=== PATIENT | female | born 1970 | race Caucasian/White ===

== ENCOUNTER 2017-06-01 05:31 | Inpatient (IN) ==
[2017-05-29 16:42] LABS: MANUAL DIFF NEEDED? NO; URINE SOURCE VOIDED
[2017-05-29 16:59] LABS: BASO% 0.8 % (0.0-0.8); EOS# 0.79 X1000 (0.0-0.7); EOS% 7.5 % (0.0-10.0); HEMATOCRIT 42.6 % (37.0-47.0); HEMOGLOBIN 14.7 g/dL (12.0-16.0); IMM GRAN# 0.02 X1000 (0.0-0.04); IMM GRAN% 0.2 % (0.0-0.5); LYMPH# 2.72 X1000 (1.2-3.4); LYMPH% 25.7 % (20.5-51.1); MCH 32.3 PG (27-31); MCHC 34.5 g/dL (33-37); MCV 93.6 FL (81-99); MONO# 0.87 X1000 (0.11-0.59); MONO% 8.2 % (1.7-9.3); MPV 10.1 FL (7.4-10.4); NEUT% 57.6 % (42.2-75.2); PLT 217 X1000 (130-400); RBC 4.55 XMIL (4.2-5.4)
[2017-05-29 17:20] LABS: BILIRUBIN URINE NEGATIVE (NEGATIVE); BLOOD URINE NEGATIVE (NEGATIVE); CLARITY SL. CLOUDY (CLEAR); COLOR YELLOW; GLUCOSE URINE NEGATIVE (NEGATIVE); LEUKOCYTES URINE TRACE (NEGATIVE); NITRITE URINE NEGATIVE (NEGATIVE); PROTEIN URINE NEGATIVE (NEGATIVE); SP GRAVITY URINE 1.015; URINE MICROSCOPIC NEEDED? YES; UROBILINOGEN URINE NORMAL
[2017-05-29 17:36] LABS: URINE CAST NONE SEEN /LPF; URINE CRYSTAL NONE SEEN /HPF; URINE EPITHELIAL CELLS <10 /HPF (<10); URINE WBC <10 /HPF (<10)
[2017-06-01] MEDS ORDERED: LR 1,000 ML ONE ×3 (06:19→09:20)
[2017-06-01] MEDS ORDERED: SENSORCAINE 0.25%/EPI 1:200,000 ONE (06:19)
[2017-06-01] MEDS ORDERED: GENTAMICIN 80 MG/NS 80 MG/50 ML IVPB IV ONE (06:20)
[2017-06-01] MEDS ORDERED: CLINDAMYCIN 900 MG/NS 900 MG/50 ML IVPB IV ONE (06:20)
[2017-06-01] MEDS ORDERED: DIPRIVAN 1% ONE ×2 (06:22→06:35)
[2017-06-01] MEDS ORDERED: QUELICIN (DOSE) ONE ×2 (06:24→08:17)
[2017-06-01] MEDS ORDERED: ZOFRAN ONE (06:26)
[2017-06-01] MEDS ORDERED: XYLOCAINE-MPF 2% ONE (06:27)
[2017-06-01] MEDS ORDERED: ZEMURON ONE (06:31)
[2017-06-01] MEDS ORDERED: PEPCID ONE (06:51)
[2017-06-01] MEDS ORDERED: GENTAMICIN 80 MG/NS 80 MG/50 ML IVPB ONE (06:52)
[2017-06-01] MEDS ORDERED: CLINDAMYCIN 900 MG/NS 900 MG/50 ML IVPB ONE (06:52)
[2017-06-01] MEDS ORDERED: ALBUTEROL NEB INH ONE (07:02)
[2017-06-01] MEDS ORDERED: ATROVENT NEB INH ONE (07:10)
[2017-06-01] MEDS ORDERED: FENTANYL ONE (07:13)
[2017-06-01] MEDS ORDERED: MORPHINE ONE (07:32)
[2017-06-01 08:04] LABS: URINE SOURCE CATH
[2017-06-01 08:15] LABS: BILIRUBIN URINE NEGATIVE (NEGATIVE); BLOOD URINE NEGATIVE (NEGATIVE); CLARITY CLEAR (CLEAR); COLOR YELLOW; GLUCOSE URINE NEGATIVE (NEGATIVE); LEUKOCYTES URINE TRACE (NEGATIVE); NITRITE URINE NEGATIVE (NEGATIVE); PROTEIN URINE NEGATIVE (NEGATIVE); SP GRAVITY URINE 1.005; URINE MICROSCOPIC NEEDED? YES; UROBILINOGEN URINE NORMAL
[2017-06-01] MEDS ORDERED: ROBINUL ONE (08:16)
[2017-06-01] MEDS ORDERED: NEOSTIGMINE ONE (08:17)
[2017-06-01 08:24] LABS: URINE EPITHELIAL CELLS <10 /HPF (<10); URINE WBC <10 /HPF (<10)
--- NOTE | 2017-06-01 08:27 | HISTORY AND PHYSICAL ---
CHIEF COMPLAINT: Perimenopausal menorrhagia. HISTORY OF PRESENT ILLNESS: This is a 47-year-old, G 1, P 1-0-0-1 who has been followed in my office for perimenopausal menorrhagia. Patient has previously tried oral contraceptives in the past which have failed to relieve her symptoms. The patient had a recent transvaginal ultrasound that revealed a small fibroid and likely adenomyosis. Patient also underwent recent endometrial biopsy which showed proliferative endometrium. The patient desires definitive extirpative management via hysterectomy. OBSTETRICAL HISTORY: section x1. COBOL DEVELOPER HISTORY: Recent Pap this year normal. Recent endometrial biopsy normal. Denies history of sexually transmitted infections. PAST MEDICAL HISTORY: Schizoaffective disorder, urge incontinence, hypercholesterolemia. PAST SURGICAL HISTORY: Significant for right knee surgery, section, cholecystectomy. MEDICATIONS: Levetiracetam, trazodone, simvastatin, oxybutynin, Coreg. ALLERGIES: Amoxicillin which causes hives. SOCIAL HISTORY: A 2 pack per day smoker. Denies ETOH. Occasional marijuana use. PHYSICAL EXAMINATION: GENERAL: Well-developed, well-nourished, white female, no acute distress. HEENT: Pupils equally round and reactive to light. Extraocular muscles intact. CHEST: Clear to auscultation bilaterally. CV: Regular rate and rhythm. No murmurs, rubs, or gallops. ABDOMEN: Soft, nontender, nondistended. EXTREMITIES: No clubbing, cyanosis, or edema. SKIN: No focal lesions. NEUROLOGIC: No focal deficits. PELVIC: Sterile vaginal exam revealed an 8 week size uterus with moderate descent. ASSESSMENT AND PLAN: The patient is counseled regarding laparoscopic assisted vaginal hysterectomy, bilateral salpingectomy. Procedure course as well as risks, benefits, and alternative procedures/treatments (or no procedure/treatment) were reviewed. Risks include but are not limited to reaction to anesthesia, injury to blood vessels, residual pain, numbness, abnormal scarring, excessive bleeding, recurrent symptoms, inability to obtain sufficient specimen, and the need for more extensive procedures. Although the benefit addressed outweigh the risks, should any of these complications occur, any of them could be permanent. No guarantees of success were given or implied. The patient states that she has no further questions and would like to proceed forward. cc: Bang Sams MD
[2017-06-01] MEDS ORDERED: PHENERGAN IM PRN (08:37)
[2017-06-01] MEDS ORDERED: NORCO-10 PO PRN (08:37)
[2017-06-01] MEDS ORDERED: MYLICON PO PRN (08:37)
[2017-06-01] MEDS ORDERED: DULCOLAX PR PRN (08:37)
[2017-06-01] MEDS ORDERED: ZOFRAN IV PRN ×2 (08:37→09:28)
[2017-06-01] MEDS ORDERED: DILAUDID PCA VIAL ONE (09:20)
[2017-06-01] MEDS ORDERED: PHENERGAN IV PRN (09:28)
[2017-06-01] MEDS ORDERED: NARCAN IV PRN (09:28)
[2017-06-01] MEDS ORDERED: LR 1,000 ML IV SCH (09:28)
[2017-06-01] MEDS ORDERED: DILAUDID PCA VIAL IV PRN (09:28)
[2017-06-01] MEDS: LR 1,000 ML IV SCH (09:45)
[2017-06-01] MEDS ORDERED: NS 1,000 ML ONE (09:54)
[2017-06-01] MEDS: OFIRMEV 1000 MG/ISOTONIC SOLN 1,000 MG/100 ML BOTTLE IV SCH ×3 (10:49→21:07)
[2017-06-01] MEDS: PERIDEX MT SCH ×2 (12:53→20:59)
[2017-06-01] MEDS: TORADOL IV SCH ×2 (14:15→20:59)
--- NOTE | 2017-06-01 14:20 | OPERATIVE NOTE ---
PROCEDURE DATE: 06/01/2017 PREOPERATIVE DIAGNOSIS: Perimenopausal menorrhagia. POSTOPERATIVE DIAGNOSIS: Perimenopausal menorrhagia. PROCEDURE PERFORMED: Laparoscopic-assisted vaginal hysterectomy and bilateral salpingectomy. SURGEON: Bang Sams MD JITNEY DRIVER: Jonh Diego MD ANESTHESIOLOGIST: Adam Vann MD FINDINGS: Normal-appearing uterus, ovaries, and bilateral fallopian tubes. COMPLICATIONS: None apparent. ESTIMATED BLOOD LOSS: 50 mL. URINE OUTPUT: 50 mL. SPECIMENS REMOVED: Uterus and bilateral fallopian tubes. OPERATIVE COURSE: After the patient was identified and consents reviewed, general anesthesia was administered without complications. The patient was placed on the operating room table in the dorsal supine position. The legs were placed in candy-cane stirrups. The abdomen and vagina were prepped and draped in normal sterile fashion. A 10 mm incision was made in the umbilicus. A Veress needle was then used to achieve adequate insufflation. A 5 mm incision was made left of the midline. A 5 mm trocar was then advanced into the intraabdominal cavity under direct camera visualization. A 2nd 5 mm trocar was placed right at the midline and then advanced into the intraabdominal cavity under direct camera visualization. Thorough survey of the pelvic anatomy revealed normal uterus ovaries and bilateral fallopian tubes. The left tube was grasped at its fimbriated end. LigaSure electrocautery was then used to dissect the fallopian tube to the level of the round ligament. The round ligament was ligated using the LigaSure. The broad ligament was ligated down to the level of the uterine arteries using LigaSure. The uterine arteries were then cauterized after identification of ureters. The contralateral side was performed in a similar manner. Attention was then turned to the vagina, where a weighted speculum was inserted. The cervix was grasped with a Bonnie clamp. Hydrodissection was achieved with 1% Marcaine. A circumferential incision was made distal to the vaginal rugae. A curved Alejandre scissors was then used on the anterior aspect of the cervix to dissect the bladder from the lower uterine segment/cervix. Anterior colpotomy was made with sharp dissection. Posterior colpotomy was then performed with sharp dissection using curved Alejandre scissors. A curved Konstantin clamp was then used to suture ligate the uterosacral ligaments bilaterally. The uterus and bilateral fallopian tubes were removed in their entirety and sent to Pathology. The vaginal cuff was then closed with 0 Vicryl in a running, locked fashion. Adequate hemostasis was noted at the cut site. Attention was returned to the abdomen where insufflation pressure was resumed and adequate hemostasis was noted throughout. Bilateral ureteric peristalsis was noted. All instruments were then removed under direct camera visualization. Insufflation pressure was removed. The 10 mm fascial incision was repaired with 0 Vicryl in a [id number] fashion. All skin was closed with 4-0 Vicryl as well as Dermabond. The patient tolerated the procedure well. She was taken to the recovery room afterwards in stable condition. cc: Bang Sams MD
[2017-06-02] MEDS: TORADOL IV SCH ×2 (02:17→08:40)
[2017-06-02] MEDS: LR 1,000 ML IV SCH (02:20)
[2017-06-02] MEDS: OFIRMEV 1000 MG/ISOTONIC SOLN 1,000 MG/100 ML BOTTLE IV SCH (04:40)
[2017-06-02 05:32] LABS: MCH 31.7 PG (27-31); MCHC 32.4 g/dL (33-37); MCV 97.6 FL (81-99); MPV 10.4 FL (7.4-10.4); RBC 3.79 XMIL (4.2-5.4)
[2017-06-02 07:56] VITALS: BP 84/68
[2017-06-02] MEDS: TRILEPTAL PO SCH ×2 (08:40→09:19)
[2017-06-02] MEDS ORDERED: KEPPRA PO SCH ×2 (09:00)
[2017-06-02] MEDS ORDERED: ZOCOR PO SCH (09:00)
[2017-06-02] MEDS: PERIDEX MT SCH (09:18)
--- NOTE | 2017-06-02 09:18 | DISCHARGE SUMMARY ---
ADMISSION DATE: 06/01/2017 DISCHARGE DATE: 06/02/2017 PRINCIPAL DIAGNOSIS: Abnormal uterine bleeding. PRINCIPAL PROCEDURE: Laparoscopic assisted vaginal hysterectomy and bilateral salpingectomy. HOSPITAL COURSE: The patient was admitted by Dr. Sams and underwent an LAVH and bilateral salpingectomy. Postoperatively she did well. She had good urine output. She remained afebrile. Postop hematocrit was 37. At this time, she is discharged home on [place] for pain. She will follow up in the office in 2 weeks. Discharge instructions were given. cc: MD Bang Phipps MD
[2017-06-02] MEDS: COREG PO SCH ×2 (09:22→09:29)
[2017-06-02] MEDS ORDERED: DESYREL PO SCH (21:00)
== END 2017-06-02 09:40 | disposition home or self-care (01) ==
LOC: P.WC 05:31
PROVIDERS: ADMIT Obstetrics & Gynecology; ATTEND Obstetrics & Gynecology